=== PATIENT | male | born 2000 | race Caucasian/White ===

== ENCOUNTER 2021-10-22 20:22 | Emergency (ER) | payer SELFPAY ==
[2021-10-22] MEDS ORDERED: LORazepam INJ 2 MG/ML (ATIVAN) VIAL IVP ONE (21:00)
--- NOTE | 2021-10-22 21:26 | ED Cardiac General ---
History of Present Illness General Chief Complaint: Chest Pain Stated Complaint: CP Nursing Triage Note: Pt states he had chest pain last night with left arm pain. Pt states the chest pain went away today but that he still has left arm pain Source: patient Exam Limitations: no limitations History of Present Illness Date Seen by Provider: October 22, 2021 Time Seen by Provider: 22:45 Initial Comments Patient with history of anxiety presents with intermittent left-sided chest pain rating to the left arm with left arm tingling with increased anxiety for the past 24 hours. No shortness of breath nausea vomiting sweats. No abdominal pain. No leg pain or swelling. Denies exertional component. No other acute symptoms or complaints. Timing/Duration: 1-3 hours Severity: mild Location: other Activities at Onset: other Prior CP/Workup: thallium scan Modifying Factors: improves with other Associated Systoms: Other Allergies and Home Medications Allergies Coded Allergies: azithromycin (Verified Allergy, Unknown, 10/22/21) Patient Home Medication List Home Medication List Reviewed: Yes Review of Systems Review of Systems Constitutional: see HPI EENTM: See HPI Respiratory: See HPI Cardiovascular: See HPI Genitourinary: See HPI Musculoskeletal: see HPI Skin: see HPI Psychiatric/Neurological: See HPI Endocrine: See HPI Hematologic/Lymphatic: See HPI All Other Systems Reviewed Negative Unless Noted: Yes Past Jjacrdk-Sbubbh-Ajhxxu Hx Patient Social History Tobacco Use?: Yes Tobacco type used: Cigarettes Smoking Status: Current Everyday Smoker Substance use?: No Alcohol Use?: Yes Alcohol Frequency: Once in a while Pt feels they are or have been: No Physical Exam Vital Signs Vital Signs - First Documented 10/22/21 20:24 Temp 36.4 Pulse 96 Resp 16 B/P (MAP) 160/83 (108) Pulse Ox 99 O2 Delivery Room Air Capillary Refill : Less Than 3 Seconds Height, Weight, BMI Height: '" Weight: lbs. oz. kg; BMI Method: General Appearance: No Apparent Distress, WD/WN, Anxious HEENT: PERRL/EOMI, Normal ENT Inspection, Pharynx Normal Neck: Full Range of Motion, Normal Inspection, Non Tender Respiratory: Chest Non Tender, Lungs Clear Cardiovascular: Regular Rate, Rhythm Gastrointestinal: Non Tender, Soft Extremity: Non Tender, No Calf Tenderness Neurologic/Psychiatric: Alert, Oriented x3 Skin: Normal Color Focused Exam Sepsis Stage: Ruled Out Progress/Results/Core Measures Results/Orders Lab Results Laboratory Tests Test 10/22/21 20:28 Range/Units Troponin I < 0.30 <0.30 NG/ML My Orders Orders - USHA MARTINES DO Chest 1 View Ap/Pa Only (10/22/21 20:31) Ekg Tracing (10/22/21 20:42) Troponin I Fs (10/22/21 20:49) Lorazepam Injection (Ativan Injection) (10/22/21 21:00) Medications Given in ED Current Medications Medications Dose Ordered Sig/Mackenzie Route Start Time Stop Time Status Last Admin Dose Admin Lorazepam 1 mg ONCE ONCE IVP 10/22/21 21:00 10/22/21 21:01 DC 10/22/21 20:53 1 MG Vital Signs/I&O 10/22/21 20:24 Temp 36.4 Pulse 96 Resp 16 B/P (MAP) 160/83 (108) Pulse Ox 99 O2 Delivery Room Air Blood Pressure Mean: 108 Departure Communication (Admissions) Chest x-ray: No acute cardiopulmonary disease per EKG: Sinus tach, rate 106, normal QRS, QTc and LA intervals Impression Primary Impression: Chest pain Additional Impression: Anxiety Disposition: HOME, SELF-CARE Condition: Stable Departure-Patient Inst. Decision time for Depature: 21:23 Referrals: NO,LOCAL PHYSICIAN (PCP/Family) Primary Care Physician Patient Instructions: Chest Pain, Adult ED, Anxiety, Adult (DC) Add. Discharge Instructions: You were evaluated in the emergency department for chest pain. EKG and chest x-ray are nondiagnostic. Your exam is consistent with anxiety. All discharge instructions reviewed with patient and/or family. Voiced understanding. USHA MARTINES DO October 22, 2021 21:26
--- NOTE | 2021-10-22 21:29 | Diagnostic Imaging Report ---
CLINICAL INDICATIONS: Patient with chest pain since last night and still has pain in left arm tonight. EXAM: Portable chest x-ray upright view. COMPARISON: None. FINDINGS: Lungs/pleura: Lungs are clear. There is no pneumothorax. There is no pleural effusion. There is cardiomegaly seen. There is no significant pulmonary vascular congestion. There is curvilinear slight prominence overlying the retrocardiac region. Air-filled hiatal hernia may be considered. If this is not a known finding, chest x-ray PA and lateral views is suggested for further evaluation. Lungs are otherwise clear. There is no pleural effusion or pneumothorax. Bones show no significant abnormality. IMPRESSION: 1: There is a partially air-filled prominent appearing area involving the lower mediastinal region. This may represent a hiatal hernia. If this is not a known finding, chest x-ray PA and lateral views is suggested for further evaluation. 2: There is cardiomegaly with no significant pulmonary vascular congestion. 3: Lungs are clear. Dictated by: Dictated on workstation # [id number]
[2021-10-22 22:20] VITALS: BP 153/93
== END 2021-10-22 22:26 | disposition home or self-care (01) ==
LOC: ER FS 20:23
DX: F41.9 Anxiety disorder, unspecified (principal); F17.210 Nicotine dependence, cigarettes, uncomplicated
CPT/HCPCS: 36415; 71045; 84484; 93005